=== PATIENT | female | born 1950 | race Caucasian/White ===

== ENCOUNTER 2017-03-05 11:13 | Emergency (ER) | payer SELFPAY ==
[2017-03-05 11:24] VITALS: BP 162/99; PULSE 77; TEMP 97.4; BMI 26.5
--- NOTE | 2017-03-05 11:44 | PDOC ---
History of Present Illness - General Chief Complaint: Pain Stated Complaint: WRIST PAIN Time Seen by Provider: 03/05/17 11:41 History Source: Patient Exam Limitations: No Limitations - History of Present Illness Initial Comments: 03/05/17 11:41 66 yr female c/o pain to the wrist right side for 3 days woke up with pain. Pt denies injury 03/05/17 11:53 Past History - Past Medical History Allergies/Adverse Reactions: Allergies Allergy/AdvReac Type Severity Reaction Status Date / Time No Known Allergies Allergy Verified 03/05/17 11:20 Home Medications: Ambulatory Orders Indomethacin [Indocin -] 50 mg PO TID PRN #21 capsule 03/05/17 Metformin HCl 850 mg PO ASDIR 03/05/17 Metronidazole 500 mg PO ASDIR 03/05/17 Orphenadrine Citrate 100 mg PO ASDIR 03/05/17 Diabetes: Yes - Surgical History Abdominal Surgery: Yes (S/P COLOSTOMY) - Psycho/Social/Smoking Cessation Hx Anxiety: No Suicidal Ideation: No Smoking History: Never smoked Have you smoked in the past 12 months: No Information on smoking cessation initiated: No Hx Alcohol Use: No Drug/Substance Use Hx: No Substance Use Type: None *Physical Exam - Vital Signs Last Vital Signs Temp Pulse Resp BP Pulse Ox 97.4 F L 77 18 162/99 100 03/05/17 11:20 03/05/17 11:20 03/05/17 11:20 03/05/17 11:20 03/05/17 11:20 - Physical Exam General Appearance: Yes: Nourished, Appropriately Dressed HEENT: positive: EOMI, THADDEUS Neck: positive: Supple Respiratory/Chest: positive: Lungs Clear, Normal Breath Sounds Cardiovascular: positive: Regular Rhythm, Regular Rate Extremity: positive: Normal Capillary Refill, Tender, Swelling (distal right radius ), Other (decreased ROM due to pain , no redness , skin is intact, no ) Integumentary: positive: Normal Color, Dry, Warm Neurologic: positive: Fully Oriented, Alert, Normal Mood/Affect, Normal Response , Motor Strength 5/5 Procedures - Splinting Pre-Made Type: velcro ED Treatment Course - LABORATORY CBC & Chemistry Diagram: 03/05/17 12:45 Medical Decision Making - Medical Decision Making 03/05/17 12:40 cc: right writ pain for 3 days will get xray to r/o fracture will check labs possible gout *DC/Admit/Observation/Transfer Diagnosis at time of Disposition: Acute wrist pain Qualifiers: Laterality: right Qualified Code(s): M25.531 - Pain in right wrist - Discharge Dispostion Disposition: HOME Condition at time of disposition: Good - Prescriptions Prescriptions: Indomethacin [Indocin -] 50 mg PO TID PRN #21 capsule PRN Reason: Pain - Referrals Referrals: Timur Noguera MD [Staff Physician] - - Patient Instructions Additional Instructions: use the splint while awake remove to sleep and bathe take indocin as directed for pain follow with your doctor or the orthopedist for follow up call to make appointment for next week any worsening pain return to ER
[2017-03-05] MEDS ORDERED: OXYCODONE/APAP 5/325MG COMBO TABLET PO ONE (12:38)
[2017-03-05] MEDS ORDERED: IBUPROFEN 600 MG TABLET (FP) PO ONE ×2 (12:39→12:47)
[2017-03-05] MEDS ORDERED: OXYCODONE/APAP 5/325MG COMBO TABLET ONE (12:47)
[2017-03-05 12:56] LABS: MCH 30.2 pg (25.7-33.7); MCHC 34.8 g/dl (32.0-36.0); MEAN CELL VOLUME 86.7 fl (80-96); MEAN PLT VOLUME 7.5 fl (7.5-11.1); PLATELET COUNT 267 K/MM3 (134-434); RDW 14.4 % (11.6-15.6); WHITE BLOOD COUNT 12.1 K/mm3 (4.0-10.0)
== END 2017-03-05 14:20 | disposition home or self-care (01) ==
LOC: JERFT 11:13
DX: M25.531 Pain in right wrist (principal)
CPT/HCPCS: 36415; 73110-TC-RT; 73130-TC-RT; 84550; 85027; 99281-25